=== PATIENT | female | born 1990 | race Caucasian/White ===

== ENCOUNTER 2017-11-06 21:01 | Emergency (ER) | payer OTHER ==
[~2017-11-06] VITALS: Ht 160 cm; Wt 81.7 kg
[~2017-11-06 21:01] MED LIST: Bactrim Ds Tab1 EACH PO; CEPH500 PO; CODACE30 PO; CRUTCH4 USE; CYCL10 PO; DEXT30SU PO; FERR325 PO; FLUC150A PO; HYDACE5 PO; IBUP400 PO; IBUP800 PO; MEDR150I IM; MICONAZOLE 7100 MG VG; MULVITMINE PO; Motrin600 MG PO; NAPR375 PO; Norco 10-325 T1 EACH PO; Norco 5-325 Ta1 EACH PO; OXYACE5T PO; PENVK500 PO; Pyridium100 MG PO; RXCODACET PO; SERT25 PO; Verotin-Gr Cap1 EACH; Verotin-Gr Cap1 EACH PO; Zithromax250 MG PO
[2017-11-06] MEDS ORDERED: Pyridium100 MG PO (22:23)
[2018-02-21] MEDS ORDERED: Pyridium100 MG PO (14:43)
[2018-02-21] MEDS ORDERED: Cefpodoxime Pr100 MG PO (14:43)
== END 2017-11-06 22:30 | disposition home or self-care (01) ==
LOC: ER 21:01
DX: B37.3 Candidiasis of vulva and vagina (principal); Z87.891 Personal history of nicotine dependence
CPT/HCPCS: 81000; 81025; 99283

== ENCOUNTER 2017-11-23 12:23 | Emergency (ER) | payer OTHER ==
[~2017-11-23] VITALS: Ht 160 cm; Wt 83.9 kg
[2017-11-23] MEDS ORDERED: BENZ100A PO (12:51)
[2017-11-23] MEDS ORDERED: Phenergan6.25 MG/5 PO (12:52)
== END 2017-11-23 13:00 | disposition home or self-care (01) ==
LOC: ER 12:23
DX: R05 Cough (principal); Z87.891 Personal history of nicotine dependence
CPT/HCPCS: 99283

== ENCOUNTER 2018-01-20 15:23 | Emergency (ER) | payer OTHER ==
[~2018-01-20] VITALS: Ht 160 cm; Wt 83.9 kg
[~2018-01-20 15:23] MED LIST changes: +BENZ100A PO; +Phenergan6.25 MG/5 PO
[2018-01-20 16:58] LABS: Source, Urine Clean Catch
[2018-01-20 17:05] LABS: Appearance, Urine Hazy (Clear); Bilirubin, Urine Neg (Neg); Blood, Urine 2+ (Neg); Color, Urine Yellow (P-Yellow); Glucose Qualitative, Urine Neg (Neg); Ketones, Urine Neg (Neg); Leukocyte Esterase, Urine 1+ (Neg); Nitrite, Urine Pos (Neg); Protein, Urine Neg (Neg); Urobilinogen, Urine NORM (Normal)
[2018-01-20] MEDS ORDERED: Macrobid 100 M100 MG PO (17:12)
[2018-01-20 17:22] LABS: Bacteria Many /hpf; Mucus Light (0-Heavy); Squamous Epithelial Cells Few /hpf (Few)
== END 2018-01-20 17:27 | disposition home or self-care (01) ==
LOC: ER 15:23
PROVIDERS: Nurse Practitioner Family
DX: N39.0 Urinary tract infection, site not specified (principal); Z87.442 Personal history of urinary calculi; Z79.2 Long term (current) use of antibiotics; Z87.891 Personal history of nicotine dependence
CPT/HCPCS: 81001; 81025; 87077; 87086; 87186

== ENCOUNTER → 2019-07-13 | Outpatient (CLI) | payer OTHER ==
[~2019-07-13] MED LIST changes: +Cefpodoxime Pr100 MG PO; +Macrobid 100 M100 MG PO
[2019-07-18 06:30] LABS: Candida species (DNA Probe) Negative (NEGATIVE); G. vaginalis (DNA Probe) Positive (NEGATIVE); T. vaginalis (DNA Probe) Negative (NEGATIVE)
[2019-07-19 04:07] LABS: CHLAMYDIA TRACHOMATIS, NAA Negative (Negative); NEISSERIA GONORRHOEAE, NAA Negative (Negative)
== END ==
LOC: LAB 17:53 → LAB SHORT 17:53
PROVIDERS: Nurse Practitioner Family
DX: Z11.3 Encounter for screening for infections with a predominantly sexual mode of transmission (principal); N89.8 Other specified noninflammatory disorders of vagina
CPT/HCPCS: 87480; 87491; 87510; 87591; 87660

== ENCOUNTER 2020-04-14 19:25 | Emergency (ER) | payer OTHER ==
[~2020-04-14] VITALS: Ht 160 cm; Wt 81.7 kg
[2020-04-14] MEDS ORDERED: CYCL10 PO (21:38)
[2020-04-14] MEDS ORDERED: LIDO700A20 TOP (21:38)
[2020-04-14] MEDS ORDERED: IBU600 MG PO (21:38)
== END 2020-04-14 21:50 | disposition home or self-care (01) ==
LOC: ER 19:25
DX: S16.1XXA Strain of muscle, fascia and tendon at neck level, initial encounter (principal); S39.012A Strain of muscle, fascia and tendon of lower back, initial encounter; Z87.891 Personal history of nicotine dependence; V89.2XXA Person injured in unspecified motor-vehicle accident, traffic, initial encounter
CPT/HCPCS: 72040; 72100; 73030; 99284-25

== ENCOUNTER 2021-11-13 21:09 | Emergency (ER) | payer OTHER ==
[~2021-11-13] VITALS: Ht 160 cm; Wt 74.8 kg
[~2021-11-13 21:09] MED LIST changes: +IBU600 MG PO; +LIDO700A20 TOP
[2021-11-13] MEDS ORDERED: KETO10 PO (22:58)
== END 2021-11-13 23:25 | disposition home or self-care (01) ==
LOC: ER 21:09
DX: M54.50 Low back pain, unspecified (principal); Z87.442 Personal history of urinary calculi; Z79.899 Other long term (current) drug therapy
CPT/HCPCS: 96372; 99283; J1885

== ENCOUNTER 2021-12-06 20:31 | Emergency (ER) | payer OTHER ==
[~2021-12-06] VITALS: Ht 160 cm; Wt 72.6 kg
[~2021-12-06 20:31] MED LIST changes: +KETO10 PO
[2021-12-06] MEDS ORDERED: LIDO700A20 TOP (21:06)
[2021-12-06] MEDS ORDERED: Robaxin750 MG PO (21:06)
== END 2021-12-06 21:23 | disposition home or self-care (01) ==
LOC: ER 20:31
DX: M54.50 Low back pain, unspecified (principal); Z87.891 Personal history of nicotine dependence
CPT/HCPCS: 96372; 99283-25; A9270; J1885

== ENCOUNTER → 2022-06-11 | Outpatient (CLI) | payer OTHER ==
[~2022-06-11] MED LIST changes: +Robaxin750 MG PO
[2022-06-12 12:12] LABS: Appearance, Urine Clear (Clear); Bilirubin, Urine Neg (Neg); Blood, Urine Neg (Neg); Color, Urine Yellow (P-Yellow); Glucose Qualitative, Urine Neg (Neg); Ketones, Urine Neg (Neg); Leukocyte Esterase, Urine Neg (Neg); Nitrite, Urine Neg (Neg); Protein, Urine Neg (Neg); Urobilinogen, Urine NORM (Normal)
== END ==
LOC: LAB 15:53 → LAB SHORT 15:53
PROVIDERS: Family Medicine
DX: N39.0 Urinary tract infection, site not specified (principal)
CPT/HCPCS: 81003

== ENCOUNTER → 2023-12-28 | Outpatient (CLI) | payer OTHER ==
[2023-12-30 10:31] LABS: HIV 1,2 COMBO ANTIGEN/ANTIBODY Negative (Negative)
== END ==
LOC: LAB 14:59 → LAB SHORT 14:59
PROVIDERS: Family Medicine
DX: Z20.9 Contact with and (suspected) exposure to unspecified communicable disease (principal)
CPT/HCPCS: 87389

== ENCOUNTER 2024-05-22 02:25 | Emergency (ER) | payer OTHER ==
[~2024-05-22] VITALS: Ht 160 cm; Wt 80.3 kg
[2024-05-22 02:47] VITALS: BP 144/102
[2024-05-22] MEDS ORDERED: Ondansetron HCl 2 MG / ML 2ML Vial IV ONE (02:50)
[2024-05-22 03:04] LABS: BASOPHILS ABSOLUTE AUTO 0.02 K/mm3 (0.00-0.23); BASOPHILS PERCENT AUTO 0 % (0-2); EOSINOPHILS ABSOLUTE AUTO 0.19 K/mm3 (0.00-0.68); EOSINOPHILS PERCENT AUTO 3 % (0-6); Hematocrit 40.5 % (33.0-51.0); Hemoglobin 13.7 g/dL (11.5-16.0); IMMATURE GRAN ABSOLUTE AUTO 0.02 K/mm3 (0.00-0.10); IMMATURE GRAN PERCENT AUTO 0 % (0-1); LYMPHOCYTES ABSOLUTE AUTO 2.07 K/mm3 (0.84-5.20); LYMPHOCYTES PERCENT AUTO 30 % (21-46); MONOCYTES ABSOLUTE AUTO 0.49 K/mm3 (0.16-1.47); MONOCYTES PERCENT AUTO 7 % (4-13); Mean Corpuscular HGB 29.1 pg (26.0-34.0); Mean Corpuscular HGB Conc 33.8 g/dL (31.5-36.5); Mean Corpuscular Volume 86 fL (80-100); Mean Platelet Volume 9.6 fL (9.1-12.4); NEUTROPHILS ABSOLUTE AUTO 4.13 K/mm3 (1.96-9.15); NEUTROPHILS PERCENT AUTO 60 % (41-73); Platelet Count 260 K/mm3 (150-400); RDW Coefficient Variation 12.3 % (11.7-14.2); RDW Standard Deviation 39.1 fL (35.1-46.3); Red Blood Cell Count 4.71 M/mm3 (3.80-5.20); White Blood Cell Count 6.92 K/mm3 (4.00-11.30)
[2024-05-22 03:10] LABS: Source, Urine Clean Catch
[2024-05-22 03:13] LABS: Appearance, Urine Hazy (Clear); Bilirubin, Urine Neg (Neg); Blood, Urine 5+ (Neg); Color, Urine Yellow (P-Yellow); Glucose Qualitative, Urine Neg (Neg); Ketones, Urine Neg (Neg); Leukocyte Esterase, Urine Neg (Neg); Nitrite, Urine Neg (Neg); Protein, Urine 1+ (Neg); Specific Gravity, Urine 1.025 (1.003-1.022); Urobilinogen, Urine 1+ (Normal)
[2024-05-22 03:23] LABS: White Blood Cells, Urine 0-2 /hpf (0-5)
[2024-05-22 03:24] LABS: Bacteria Few /hpf; Red Blood Cells, Urine 50-100 /hpf (0-2); Squamous Epithelial Cells Mod /hpf (Few)
[2024-05-22 03:34] LABS: Calcium, Ionized (POC) 1.19 mmol/L (1.10-1.46); Chloride (POC) 107 mmol/L (98-108); Creatinine (POC) 0.9 mg/dL (0.6-1.0); Glucose (ISTAT POC) 91 mg/dL (70-99); Hemoglobin (POC) 13.9 g/dL (12.0-16.0); Potassium (POC) 3.7 mmol/L (3.5-5.5); Sodium (POC) 142 mmol/L (135-148); Total CO2 (POC) 21 mmol/L (21-32)
[2024-05-22 05:57] LABS: Albumin/Globulin Ratio 1.1 (0.8-1.8); Bilirubin, Total 0.7 mg/dL (0.1-1.0); Bun/Creatinine Ratio 15.9 (12.0-20.0); Calcium, Blood 9.1 mg/dL (8.5-10.1); Creatinine, Blood 0.82 mg/dL (0.40-1.00); Globulin, Blood 3.5 g/dL (2.2-4.0); Potassium, Blood 3.9 mmol/L (3.5-5.5); Total Protein, Blood 7.5 g/dL (6.4-8.2)
== END 2024-05-22 03:47 | disposition left against medical advice (07) ==
LOC: ER 02:25
PROVIDERS: Emergency Medicine
DX: Z53.21 Procedure and treatment not carried out due to patient leaving prior to being seen by health care provider (principal)
CPT/HCPCS: 80047; 80053; 81001; 83690; 84703; 85014; 85025

== ENCOUNTER → 2024-07-29 | Outpatient (CLI) | payer OTHER | END | disposition home or self-care (01) | LOC: LAB 12:53 → LAB SHORT 12:53 | DX: Z87.442 Personal history of urinary calculi (principal) | CPT/HCPCS: 87086 ==